=== PATIENT | male | born 1995 | race Caucasian/White ===

== ENCOUNTER 2018-11-09 11:18 | Emergency (ER) | payer OTHER ==
[~2018-11-09] VITALS: Ht 188 cm; Wt 75.0 kg
[~2018-11-09 11:18] MED LIST: LEXAPRO 10MG10 MG PO; TYLENOL 325MG325 MG PO
[2018-11-09 11:23] VITALS: BP 124/88; TEMP 97.9
[2018-11-09 13:36] VITALS: PULSE 69
== END 2018-11-09 13:36 | disposition home or self-care (01) ==
LOC: COL.ER 11:18
DX: R07.9 Chest pain, unspecified (principal)